=== PATIENT | male | born 1945 | race Caucasian/White ===

== ENCOUNTER 2017-07-19 09:43 | Emergency (ER) | payer OTHER ==
[~2017-07-19] VITALS: Ht 182.9 cm; Wt 75.9 kg
[~2017-07-19 09:43] MED LIST: CLOPIDOGREL75 MG PO; DITROPAN XL5 MG PO; GLUCOPHAGE850 MG PO; GUAIATUSSIN AC118 ML PO; IPRATROPIUM BRO15 ML BOTH NARES; IRON325 M1 PO; ISOSORBIDE MONO60 MG PO; JANUVIA100 MG PO; LANTUS 3 M100 UNITS1 SC; LIPITOR80 MG PO; LISINOPRIL-HCT1 EAC3 PO; LO-DOSE ASPIRIN81 M1 PO; LOVENOX40 MG/0.4 SC; NITROSTAT0.4 MG SL; NORMODYNE,TRAN200 MG PO; NORVASC10 MG PO; PROTONIX40 MG PO; SF 5000 PLUS51 GM DT; UREA85 GM TP; VITAMIN B-121000 MCG PO; VITAMIN D31000 UNI2 PO; VITAMIN E400 UNIT PO; ZANTAC300 MG PO; ZYRTEC10 M2 PO; [UNRECOGNIZED DRUG - OTHER] MM
[2017-07-19 10:37] LABS: HEMATOCRIT 40.2 % (38.0-50.0); MCH 29.3 PG (29.0-34.0); MCHC 32.3 G/DL (30.0-36.0); MCV 90.7 FL (86-99); MEAN PLAT.VOLUME 10.5 uM^3 (9.0-12.4); PLATELET COUNT 218 K/uL (156-360); RBC DIS.WIDTH-CV 14.7 % (11.8-14.6); RBC DIS.WIDTH-SD 49.6 % (39-53); RED BLOOD COUNT 4.43 M/uL (4.00-5.50); WHITE BLOOD COUNT 8.4 K/uL (4.1-10.2)
[2017-07-19 10:50] LABS: CHLORIDE 108 mEq/L (99-109); POTASSIUM 3.4 mEq/L (3.7-5.4); SODIUM 144 mEq/L (136-147)
[2017-07-19 10:52] LABS: GLUCOSE 40 mg/dL (70-99)
[2017-07-19 10:53] LABS: ANION GAP 13 MEQ/L (2-14)
[2017-07-19 10:55] LABS: GFR ESTIMATE (CALCULATED) > 59 mL/min/
[2017-07-19 10:56] LABS: UREA NITROGEN (BUN) 16 mg/dL (9-23)
[2017-07-19 11:01] LABS: TROP-I INTERPRETATION NEGATIVE; TROPONIN-I 0.02 ng/mL (0.0-0.30)
[2017-07-19 11:57] LABS: POINT-OF-CARE METER ID UU13113747; POINT-OF-CARE USER ID STWBNM
[2017-07-19] MEDS ORDERED: TEKTURNA150 MG PO (12:41)
[2017-07-19] MEDS ORDERED: TAMSULOSIN HCL0.4 MG PO (12:41)
[2017-07-19] MEDS ORDERED: PROAIR HFA8.5 GM IH (12:42)
[2017-07-19] MEDS ORDERED: PRESERVISION T1 EACH PO (12:42)
[2017-07-19] MEDS ORDERED: ACIDOPHILUS LA1 EAC1 PO (12:43)
[2017-07-19] MEDS ORDERED: MONTELUKAST SOD10 MG PO (12:43)
[2017-07-19 13:19] LABS: POINT-OF-CARE METER ID UU13113747; POINT-OF-CARE USER ID STWBNM
[2017-07-19 14:11] VITALS: BP 136/68
[2017-07-20 10:03] LABS: POINT-OF-CARE METER ID UU13113747; POINT-OF-CARE USER ID STWBNM
== END 2017-07-19 14:25 | disposition short-term general hospital (02) ==
LOC: EME 09:43
PROVIDERS: Emergency Medicine
DX: R09.02 Hypoxemia (principal); R94.31 Abnormal electrocardiogram [ECG] [EKG]; I11.0 Hypertensive heart disease with heart failure; I50.9 Heart failure, unspecified; K21.9 Gastro-esophageal reflux disease without esophagitis; I25.2 Old myocardial infarction; Z95.1 Presence of aortocoronary bypass graft; Z87.891 Personal history of nicotine dependence
CPT/HCPCS: 71020; 80048; 82948; 83880; 84484; 85027; 93005; 99281; 99285; J1940